=== PATIENT | male | born 1970 | race Hispanic/Latino ===

== ENCOUNTER 2019-02-01 17:54 | Emergency (ER) | payer SELFPAY ==
[~2019-02-01] VITALS: Ht 175.3 cm; Wt 85.9 kg
[~2019-02-01 17:54] MED LIST: CIPRO500 MG OR; DENIES CURRENT MEDS; FLEXERIL PO; FLEXERIL5 MG PO; FLOMAX0.4 M1 OR; HYDROCORTISONE EX; LISINOP/HCTZ1 TA2 OR; LISINOPRIL10 MG PO; LISINOPRIL5 MG PO; LORTAB 5 OR; LORTAB5 OR; MEDDOSEPAK PO; METFORMIN500 MG PO; MOTRIN IB200 MG OR; NAPROSYN375 MG PO; NAPROSYN500 MG PO; NO HOME MEDS; TORADOL OR; ULTRAM50 M1 OR; ULTRAM50 M1 PO; UNKNOWN BP MED; VENTOLIN HFA IN; VICODIN1 TAB PO; [UNRECOGNIZED DRUG - REMARK] PO
[2019-02-01] MEDS ORDERED: HYZAAR1 TA1 PO (18:42)
[2019-02-01 18:55] VITALS: BP 146/88
== END 2019-02-01 18:55 | disposition home or self-care (01) | DRG 556 ==
LOC: ED 17:54
DX: M79.642 Pain in left hand (principal); M25.532 Pain in left wrist

== ENCOUNTER 2022-03-15 20:43 | Emergency (ER) | payer SELFPAY ==
[~2022-03-15] VITALS: Ht 175.3 cm; Wt 95.0 kg
[~2022-03-15 20:43] MED LIST changes: +HYZAAR1 TA1 PO
[2022-03-15 20:53] VITALS: BP 110/90
[2022-03-15 21:00] VITALS: BP 112/81
[2022-03-15] MEDS ORDERED: ORPHENADRINE100 MG PO (21:05)
[2022-03-15] MEDS ORDERED: TORADOL PO (21:05)
[2022-03-15 21:26] VITALS: BP 112/81
== END 2022-03-15 21:47 | disposition home or self-care (01) | DRG 552 ==
LOC: ED 20:43
DX: M54.50 Low back pain, unspecified (principal); G89.29 Other chronic pain

== ENCOUNTER 2022-10-02 07:54 | Emergency (ER) | payer SELFPAY ==
[~2022-10-02] VITALS: Ht 175.3 cm; Wt 86.2 kg
[~2022-10-02 07:54] MED LIST changes: +ORPHENADRINE100 MG PO; +TORADOL PO
[2022-10-02 08:15] VITALS: BP 109/76
[2022-10-02 08:30] VITALS: BP 124/84
[2022-10-02 08:43] LABS: BASO% 0.3 % (0-3); EOS% 2.7 % (0-8); IMMATURE GRANULOCYTES 0.1 % (0.0-5.0); LYMPH% 15.2 % (15-41); MEAN CORPUSCULAR HGB 27.6 pG CALC (26.0-32.0); MEAN CORPUSCULAR HGB CONC 31.7 g/dL CAL (32.0-36.0); NEUT# 5.63 thou/uL (1.82-7.42); NEUT% 75.7 % (42-76); RED BLOOD COUNT 4.71 mill/uL (4.70-6.10); RED CELL DISTRI WIDTH 13.2 % (11.5-15.5)
[2022-10-02 09:00] VITALS: BP 117/81
[2022-10-02 09:21] VITALS: BP 117/81
== END 2022-10-02 09:35 | disposition home or self-care (01) | DRG 153 ==
LOC: ED 07:54
PROVIDERS: Family Medicine
DX: J06.9 Acute upper respiratory infection, unspecified (principal); I10 Essential (primary) hypertension; Z20.822 Contact with and (suspected) exposure to COVID-19

== ENCOUNTER 2022-11-21 03:10 | Emergency (ER) | payer SELFPAY | END 2022-11-21 03:59 | disposition left against medical advice (07) | DRG 951 | LOC: ED 03:10 | DX: Z53.21 Procedure and treatment not carried out due to patient leaving prior to being seen by health care provider (principal) ==

== ENCOUNTER 2023-01-14 13:56 | Emergency (ER) | payer SELFPAY ==
[~2023-01-14] VITALS: Ht 175.3 cm; Wt 88.8 kg
[2023-01-14] MEDS ORDERED: FLOXIN OTIC0.3 % AD (15:09)
[2023-01-14 15:10] VITALS: BP 129/94
[2023-01-14 15:15] VITALS: BP 123/88
[2023-01-14 15:30] VITALS: BP 110/83
[2023-01-14 15:45] VITALS: BP 120/77
== END 2023-01-14 15:45 | disposition home or self-care (01) | DRG 156 ==
LOC: ED 13:56
DX: H60.91 Unspecified otitis externa, right ear (principal); I10 Essential (primary) hypertension